=== PATIENT | female | born 1995 | race African-American/Black ===

== ENCOUNTER 2016-05-09 11:36 | Emergency (ER) | payer SELFPAY ==
[~2016-05-09] VITALS: Ht 157.5 cm; Wt 45.4 kg
[~2016-05-09 11:36] MED LIST: DIPH25CA58 PO
--- NOTE | 2016-05-09 12:34 | PHYS DOC ---
Past Medical History Past Medical History: No Pertinent History Past Surgical History: No Surgical History Additional Information: 1 pack/week Alcohol Use: None Drug Use: None Adult General Chief Complaint Chief Complaint: VAGINAL BLEEDING [facility] HPI Patient is a 21 year old female who presents with vaginal bleeding for 3 days. She is currently , partly 9 weeks with LMP 02/23/16. She is . She describes the bleeding as less than her usual menstrual cycle but is bright red. She has pelvic cramping as well. She denies nausea, vomiting, urinary symptoms, or vaginal discharge. She has not yet seen an OB for this . She does not have a PCP. Review of Systems Review of Systems Constitutional: Denies fever or chills. [] GI: Denies nausea, vomiting, bloody stools or diarrhea. Reports abdominal cramping. : Denies dysuria, hematuria or urinary frequency. Denies vaginal discharge. Reports vaginal bleeding with . Musculoskeletal: Denies back pain or joint pain. [] Integument: Denies rash or skin lesions. [] Neurologic: Denies headache, focal weakness or sensory changes. [] All systems reviewed and negative unless otherwise stated in the HPI. Allergies Allergies Allergies Coded Allergies Type Severity Reaction Last Updated Verified No Known Drug Allergies 04/17/16 No Physical Exam Physical Exam Constitutional: Well developed, well nourished, no acute distress, non-toxic appearance. [] HENT: Normocephalic, atraumatic, oropharynx moist. [] Eyes: PERRLA, EOMI, conjunctiva normal, no discharge. [] Neck: Normal range of motion, no tenderness, supple, no stridor. [] Cardiovascular: Heart rate regular rhythm, no murmur. [] Lungs & Thorax: Bilateral breath sounds clear to auscultation without wheezes, rales, or rhonchi. [] Abdomen: Bowel sounds normal, soft, mild suprapubic tenderness, no masses, no pulsatile masses. [] Female : ED RN anesthesiology teacher present during exam. Normal external genitalia. There is mild bleeding in the vagina. There is no cervicitis. Cervical os is closed. There is diffuse tenderness to palpation without mass. Skin: Warm, dry, no erythema, no rash. [] Extremities: No tenderness, ROM intact, no edema. 2+ DP pulses bilaterally. [] Neurologic: Alert and oriented X 3, normal motor function, normal sensory function, no focal deficits noted. [] Psychologic: Affect normal, judgement normal, mood normal. [] Current Patient Data Vital Signs Vital Signs Date Time Temp Pulse Resp B/P Pulse Ox O2 Delivery O2 Flow Rate FiO2 05/09/16 12:00 98.4 109 16 121/65 100 Room Air 98.4 Lab Values Laboratory Tests Test 05/09/16 12:35 White Blood Count 8.1x10^3/uL (4.0-11.0) Red Blood Count 4.61x10^6/uL (3.50-5.40) Hemoglobin 12.1g/dL (12.0-15.5) Hematocrit 38.0% (36.0-47.0) Mean Corpuscular Volume 83fL (79-100) Mean Corpuscular Hemoglobin 26pg (25-35) Mean Corpuscular Hemoglobin Concent 32g/dL (31-37) Red Cell Distribution Width 16.4% (11.5-14.5) H Platelet Count 215x10^3/uL (140-400) Neutrophils (%) (Auto) 68% (31-73) Lymphocytes (%) (Auto) 23% (24-48) L Monocytes (%) (Auto) 6% (0-9) Eosinophils (%) (Auto) 2% (0-3) Basophils (%) (Auto) 1% (0-3) Neutrophils # (Auto) 5.5x10^3uL (1.8-7.7) Lymphocytes # (Auto) 1.8x10^3/uL (1.0-4.8) Monocytes # (Auto) 0.5x10^3/uL (0.0-1.1) Eosinophils # (Auto) 0.2x10^3/uL (0.0-0.7) Basophils # (Auto) 0.1x10^3/uL (0.0-0.2) Maternal Serum HCG Beta Subunit 5541mIU/mL (0-6) H Laboratory Tests 05/09/16 12:35 Microbiology 05/09/16 Wet Prep - Final, Complete Microbiology 05/09/16 Wet Prep - Final, Complete WET PREP Final YEAST NONE SEEN TRICHOMONAS NONE SEEN CLUE CELLS NONE SEEN WBCS OCCASIONAL RBCS MANY SQUAMOUS EPS FEW EKG EKG [] Radiology/Procedures Radiology/Procedures REASON: vaginal bleeding x3 days, LMP 03/02/16 PROCEDURE: OB <14 WKS W/TV Indication vaginal bleeding. Cramping. An early obstetrical ultrasound examination was requested. Initially transabdominal scans were obtained. Initial transabdominal scans were supplemented with transvaginal scans. There is no independent confirmation of . No beta-hCG value is available. No similar imaging is available. The uterus measures approximately 9.2 x 6.1 x 4.6 cm. Incidental note is made of a retroverted uterus. At the fundus of the uterus there is a fluid collection measuring approximately 1.9 cm which would be compatible with a gestational sac. The fluid collection size would suggest a of approximately 7 weeks however no pole or yolk sac is apparent. A blighted ovum or pseudogestational sac (possibly associated with an ectopic ) is not excluded. No significant free fluid was seen in the pelvis and the ovaries appeared normal. IMPRESSION: Fluid collection suggesting blighted ovum. Correlation with hCG value advised. Follow-up ultrasound imaging may be warranted. Course & Med Decision Making Course & Med Decision Making Pertinent Labs and Imaging studies reviewed. (See chart for details) Patient is presents with 3 days of vaginal bleeding. On exam, there is mild bleeding and the os is closed. Ultrasound shows likely blighted ovum. Blood type is O+, so no RhoGAM was administered in the emergency department. Dr. Amos with OB was contacted. She recommends follow-up in the office for serial hCG and ultrasound examination. Results were discussed with patient. Return precautions were discussed as well. She verbalizes understanding and agrees with plan. Dragon Disclaimer Dragon Disclaimer This electronic medical record was generated, in whole or in part, using a voice recognition dictation system. Departure Departure Impression: Primary Impression: Blighted ovum Disposition: 01 HOME, SELF-CARE Condition: STABLE Referrals: ROJELIO DAVIDSON MD Patient Instructions: Blighted Ovum Additional Instructions: You were seen today for vaginal bleeding and . Your ultrasound shows a blighted ovum, or a fertilized egg that did not develop into a fetus. You likely have some continued bleeding and cramping associated with this. Please follow-up with the [facility] doctor listed below for repeat ultrasound evaluation and hormone testing. Return to the emergency department if you have heavy bleeding that requires you to change a pad every hour or, severe pain, or other new or concerning symptoms. Scripts Acetaminophen With Codeine (Tylenol With Codeine #3 Tablet)1 Each Tablet1 Tab PO PRN Q6HRS PRN PAIN #20 TAB Prov:MIGUEL CANTU 05/09/16 MIGUEL CANTU May 09, 2016 12:34
[2016-05-09 12:47] LABS: BASO # 0.1 x10^3/uL (0.0-0.2); BASO % 1 % (0-3); EOS % 2 % (0-3); HEMOGLOBIN 12.1 g/dL (12.0-15.5); LYMPH # 1.8 x10^3/uL (1.0-4.8); LYMPH % 23 % (24-48); MEAN CORPUSCULAR HEMOGLOBIN 26 pg (25-35); MEAN CORPUSCULAR HGB CONC 32 g/dL (31-37); MEAN CORPUSCULAR VOLUME 83 fL (79-100); MONO % 6 % (0-9); NEUT % 68 % (31-73); PLATELET COUNT 215 x10^3/uL (140-400); RED BLOOD COUNT 4.61 x10^6/uL (3.50-5.40); RED CELL DISTRIBUTION WIDTH 16.4 % (11.5-14.5); WHITE BLOOD COUNT 8.1 x10^3/uL (4.0-11.0)
[2016-05-09 13:00] VITALS: BP 104/63
--- NOTE | 2016-05-09 13:35 | RAD ---
Indication vaginal bleeding. Cramping. An early obstetrical ultrasound examination was requested. Initially transabdominal scans were obtained. Initial transabdominal scans were supplemented with transvaginal scans. There is no independent confirmation of . No beta-hCG value is available. No similar imaging is available. The uterus measures approximately 9.2 x 6.1 x 4.6 cm. Incidental note is made of a retroverted uterus. At the fundus of the uterus there is a fluid collection measuring approximately 1.9 cm which would be compatible with a gestational sac. The fluid collection size would suggest a of approximately 7 weeks however no pole or yolk sac is apparent. A blighted ovum or pseudogestational sac (possibly associated with an ectopic ) is not excluded. No significant free fluid was seen in the pelvis and the ovaries appeared normal. IMPRESSION: Fluid collection suggesting blighted ovum. Correlation with hCG value advised. Follow-up ultrasound imaging may be warranted.
[2016-05-09] MEDS ORDERED: ACET-704 PO (14:51)
== END 2016-05-09 15:25 | disposition home or self-care (01) ==
LOC: ER 11:36
DX: O02.0 Blighted ovum and nonhydatidiform mole (principal); Z3A.09 9 weeks gestation of pregnancy
CPT/HCPCS: 36415; 76801; 76817; 84702; 85027; 86900; 86901; 87491; 87591; 99285; Q0111

== ENCOUNTER 2019-03-29 11:13 | Observation (INO) | payer MEDICAID ==
[~2019-03-29 11:13] MED LIST changes: +ACET-704 PO
[2019-03-29] MEDS ORDERED: ONDANSETRON PF 4 MG/2 ML VIAL. IV PRN (11:30)
[2019-03-29] MEDS ORDERED: ACETAMINOPHEN 325 MG TABLET. PO PRN (11:30)
[2019-03-29 11:44] LABS: BILIRUBIN,URINE NEGATIVE (NEG); CLARITY,URINE CLEAR; COLOR,URINE YELLOW; NITRITE,URINE NEGATIVE (NEG); PH,URINE 6.5; PROTEIN,URINE NEGATIVE (NEG-TRACE); UROBILINOGEN,URINE 0.2 mg/dL (0.2 mg/dL)
[2019-03-29 11:55] LABS: AMPHETAMINE/METHAMPHETAMINE NEG (NEG); BARBITURATES NEG (NEG); BENZODIAZEPINES NEG (NEG); CANNABINOIDS POS (NEG); COCAINE NEG (NEG); METHADONE NEG (NEG); OPIATES NEG (NEG); PHENCYCLIDINE NEG (NEG)
[2019-03-29] MEDS ORDERED: IV RINGERS,LACTATED 1000ML 1,000 ML IV SCH (12:00)
[2019-03-29 12:15] LABS: SQUAMOUS EPITHELIAL CELL,UR MOD /LPF
[2019-03-29 12:16] LABS: BACTERIA,URINE FEW /HPF (0-FEW)
[2019-03-29] MEDS ORDERED: hydrOXYzine 25 MG TABLET PO PRN (12:30)
== END 2019-03-29 13:18 | disposition home or self-care (01) ==
LOC: 3 SO LND 11:13
PROVIDERS: ADMIT Specialist; ATTEND Specialist
DX: O26.892 Other specified pregnancy related conditions, second trimester (principal); R10.9 Unspecified abdominal pain; Z3A.21 21 weeks gestation of pregnancy; Z86.19 Personal history of other infectious and parasitic diseases
CPT/HCPCS: 80307; 81001; G0378; G0379

== ENCOUNTER → 2019-05-19 | Outpatient (CLI) | payer MEDICAID ==
--- NOTE | 2019-05-19 18:29 | RAD ---
EXAM: Ultrasound OB Greater than 14 weeks INDICATION: Estimated weight and anatomy. Second trimester size and dates discrepancy. TECHNIQUE: Real-time obstetrical ultrasound was performed with permanent freeze-frame documentation. COMPARISON: None FINDINGS: POSITION: Cephalic HEART RATE: 135 bpm MELLO: 7.9 cm PLACENTA: Anterior fundal. Not low-lying. CERVICAL LENGTH: Not well visualized. MATERNAL UTERUS: Unremarkable. MATERNAL ADNEXA: Unremarkable. AGE/DATES: Gestational Age by LMP: 28 weeks 3 days Gestation Age by US: 29 weeks 1 day EDC by LMP: August 08, 2019 EDC by US: August 03, 2019 WEIGHT: 1241 grams +/- 184 grams PERCENTILE WEIGHT: 49% BIOMETRIC PARAMETERS: BPD: 7.6 cm corresponding with 30 weeks 3 days HC: 27.0 cm corresponding with 29 weeks 3 days AC: 23.7 cm corresponding with 28 weeks 0 days FL: 5.4 cm corresponding with 28 weeks 5 days ANATOMY: CARDIAC: Normal four chamber heart. The left and right ventricular outflow tracts and the profile were not well seen due to decreased fluid. UMBILICAL CORD: Normal 3 vessel cord. Normal cord insertion. BRAIN: Not well seen NOSE/LIPS: Unremarkable. SPINE: Unremarkable. EXTREMITIES: Unremarkable. STOMACH: Unremarkable. KIDNEYS: Not well seen BLADDER: Unremarkable. IMPRESSION: OB ultrasound demonstrating a single viable fetus in cephalic position. Estimated gestational age of 29 weeks 1 day and EDC of August 03, 2019. Amniotic fluid index is low normal. Electronically signed by: Roselyn Figueroa MD (05/19/2019 6:26 PM) [facility]
== END | disposition home or self-care (01) ==
LOC: US 15:04
PROVIDERS: ATTEND Obstetrics & Gynecology
DX: O26.843 Uterine size-date discrepancy, third trimester (principal); Z3A.23 23 weeks gestation of pregnancy
CPT/HCPCS: 76805

== ENCOUNTER 2020-12-17 10:22 | Emergency (ER) | payer MEDICAID ==
[~2020-12-17] VITALS: Ht 160 cm; Wt 50.0 kg
[~2020-12-17 10:22] MED LIST changes: +PREN-14 PO
--- NOTE | 2020-12-17 10:52 | PHYS DOC ---
Past Medical History Past Medical History: No Pertinent History Past Surgical History: No Surgical History Smoking Status: Current Every Day Smoker Alcohol Use: None Drug Use: None General Adult EDM: Chief Complaint: ABDOMINAL PAIN HPI: HPI: Patient is a 25 year old female who presents to the ED today complaining of 5 out of 10 sharp intermittent right lower quadrant abdominal pain with urinary frequency, symptoms began 2 days ago. Patient denies anything specifically exacerbating or relieving the pain, reports nausea and vomiting. Patient denies any fever. Denies any unusual vaginal discharge, she is currently on her cycle. Denies any concerns for STDs. Review of Systems: Review of Systems: Constitutional: Denies fever or chills. [] Eyes: Denies change in visual acuity. [] HENT: Denies nasal congestion or sore throat. [] Respiratory: Denies cough or shortness of breath. [] Cardiovascular: Denies chest pain or edema. [] GI: Reports right low abdominal pain,with nausea, vomiting, denies bloody stools or diarrhea. [] : Reports urinary frequency. Denies dysuria. [] Musculoskeletal: Denies back pain or joint pain. [] Integument: Denies rash. [] Neurologic: Denies headache, focal weakness or sensory changes. [] Psychiatric: Denies depression or anxiety. [] Heart Score: C/O Chest Pain: N/A Risk Factors: Risk Factors: DM, Current or recent (<one month) smoker, HTN, HLP, family history of CAD, obesity. Risk Scores: Score 0 - 3: 2.5% MACE over next 6 weeks - Discharge Home Score 4 - 6: 20.3% MACE over next 6 weeks - Admit for Clinical Observation Score 7 - 10: 72.7% MACE over next 6 weeks - Early Invasive Strategies Allergies: Allergies: Allergies Coded Allergies Type Severity Reaction Last Updated Verified No Known Drug Allergies 04/17/16 No Physical Exam: PE: Constitutional: Well developed, well nourished, no acute distress, non-toxic ap pearance. [] HENT: Normocephalic, atraumatic, bilateral external ears normal, oropharynx moist, no oral exudates, nose normal. [] Eyes: PERRLA, EOMI, conjunctiva normal, no discharge. [] Neck: Normal range of motion, no tenderness, supple, no stridor. [] Cardiovascular:Heart rate regular rhythm, no murmur [] Lungs & Thorax: Bilateral breath sounds clear to auscultation [] Abdomen: Flat abdomen. Bowel sounds normal, soft, no point tenderness to the right upper quadrant with negative Pollock sign, slight right lower quadrant tenderness with negative psoas sign, negative obturator sign, negative Rovsing sign, no guarding, no rebound tenderness, no masses, no pulsatile masses. Skin: Warm, dry, no erythema, no rash. [] Back: No tenderness, no CVA tenderness. [] Extremities: No tenderness, no cyanosis, no clubbing, ROM intact, no edema. [] Neurologic: Alert and oriented X 3, normal motor function, normal sensory function, no focal deficits noted. [] Psychologic: Affect normal, judgement normal, mood normal. [] EKG: EKG: [] Radiology/Procedures: Radiology/Procedures: [] Course & Med Decision Making: Course & Med Decision Making Pertinent Labs and Imaging studies reviewed. (See chart for details) This is a 35-year-old female patient presented to the ED today complaining of right lower quadrant abdominal pain with urinary frequency, symptoms for 2 days. Labs were ordered, CT, UA and the pelvic exam. Negative urine hCG, urinalysis negative for infection. I went to do a pelvic exam. Patient states her 1-year-old daughter was left with her sister who is 27, she states the sister reports the baby is crying and she has to go home right now. Patient was given the risk of leaving A including a ruptured appendicitis, sepsis, disability, and . She proceeded to leave A. She states she will return to the ED later Dragon Disclaimer: Latha Disclaimer: This electronic medical record was generated, in whole or in part, using a voice recognition dictation system. Departure Departure Impression: Primary Impression: Right lower quadrant pain Disposition: LEFT AGAINST MEDICAL ADVICE Condition: STABLE Referrals: NO PCP (PCP) NITA CHANDLER [employer] [facility] Dec 17, 2020 10:51
[2020-12-17 11:49] LABS: BILIRUBIN,URINE NEGATIVE (NEG); CLARITY,URINE CLEAR; COLOR,URINE YELLOW; NITRITE,URINE NEGATIVE (NEG); PROTEIN,URINE NEGATIVE (NEG-TRACE); UROBILINOGEN,URINE 0.2 mg/dL (0.2 mg/dL)
[2020-12-17 11:57] LABS: BACTERIA,URINE FEW /HPF (0-FEW); RBC,URINE >40 /HPF (0-2)
[2020-12-17] MEDS ORDERED: IV NORMAL SALINE 1000ML BAG 1,000 ML IV ONE (12:15)
[2020-12-17] MEDS ORDERED: MORPHINE SULFATE 2 MG/ML INJ. IVP ONE (12:15)
[2020-12-17] MEDS ORDERED: ONDANSETRON PF 4 MG/2 ML VIAL. IVP ONE (12:15)
[2020-12-17 12:35] VITALS: BP 108/60
[2020-12-17 12:36] LABS: BARBITURATES NEG (NEG); BENZODIAZEPINES NEG (NEG); CANNABINOIDS POS (NEG); COCAINE NEG (NEG); METHADONE NEG (NEG); OPIATES NEG (NEG); PHENCYCLIDINE NEG (NEG)
[2020-12-17 12:38] LABS: AMPHETAMINE/METHAMPHETAMINE NEG (NEG)
[2020-12-17] MEDS ORDERED: IOHEXOL 300 MG/ML 100ML VIAL. IV ONE (13:15)
[2020-12-17] MEDS ORDERED: CONTRAST GIVEN. MC PRN (13:15)
== END 2020-12-17 12:40 | disposition left against medical advice (07) ==
LOC: ER 10:22
DX: R10.31 Right lower quadrant pain (principal); R35.0 Frequency of micturition; F17.200 Nicotine dependence, unspecified, uncomplicated
CPT/HCPCS: 80307; 81001; 81025; 99285-25